=== PATIENT | male | born 1995 | race Caucasian/White ===

== ENCOUNTER 2016-12-02 02:17 | Emergency (ER) | payer BC ==
--- NOTE | 2016-12-02 02:31 | EDPHY ---
H & P HPI/ROS: HPI CHIEF COMPLAINT: Nausea, vomiting, diarrhea HISTORY OF PRESENT ILLNESS: Patient otherwise healthy 21-year-old male, no significant medical history presents emergency room nausea vomiting diarrhea. Nonbloody. Patient reports that he had PF change around 930 10:00 p.m. this evening. 30 minutes after eating this he developed nausea vomiting and diarrhea. Abdominal cramping rather diffuse. No fever. Vomited multiple times and has ongoing nausea. Decided come to the emergency room as he has ongoing vomiting. Denies fever. Denies chest pain or shortness of breath. Past Medical History: Denies significant medical history Past Surgical History: Denies significant surgical history Social History: Denies daily use drugs alcohol tobacco products. Family History: Noncontributory ROS REVIEW OF SYSTEMS: A comprehensive 10 point review of systems is otherwise negative aside from elements mentioned in the history of present illness. Exam Constitutional appears well nontoxic, triage nursing summary reviewed, vital signs reviewed, awake/alert. Eyes normal conjunctivae and sclera, EOMI, PERRLA. HENT normal inspection, atraumatic, moist mucus membranes, no epistaxis, neck supple/ no meningismus, no raccoon eyes. Respiratory clear to auscultation bilaterally, normal breath sounds, no respiratory distress, no wheezing. Cardiovascular rate normal, regular rhythm, no murmur, no edema, distal pulses normal. Gastrointestinal soft, non-tender, no rebound, no guarding, normal bowel sounds, no distension, no pulsatile mass. Genitourinary no CVA tenderness. Musculoskeletal no midline vertebral tenderness, full range of motion, no calf swelling, no tenderness of extremities, no meningismus, good pulses, neurovascularly intact. Skin pink, warm, & dry, no rash, skin atraumatic. Neurologic awake, alert and oriented x 3, AAOx3, moves all 4 extremities equally, motor intact, sensory intact, CN II-XII intact, normal cerebellar, normal vision, normal speech. Psychiatric normal mood/affect. Heme/Lymph/Immune no lymphadenopathy. Differential diagnosis includes but is not limited to and in no particular order : Food-borne illness, Bowel obstruction, appendicitis, gallbladder disease, diverticulitis, colitis, enteritis, perforated viscus, gastritis, GERD, esophagitis, urinary tract infection, pyelonephritis, kidney stones Medical Decision Making: Plan for this patient IV established with IV fluid bolus, 2 L normal saline, IV Zofran 4 mg for nausea, check abdominal blood work and re-evaluate. I do not feel that he needs any imaging at this time. Re-evaluation: 0243: Additionally this patient is having an anxiety attack. IV Ativan 1 mg has been ordered [place] [id number]. In the setting of nausea vomiting abdominal pain will proceed with CT scan abdomen pelvis with IV contrast rule out acute appendicitis. Most likely acute GI illness. CT scan abdomen pelvis with IV contrast shows enteritis. No evidence of free air free fluid or acute appendicitis. There are multiple loops of small bowel that are fluid filled consistent with enteritis. Clinically this picture make sense. He has elevated white count with nausea vomiting and diarrhea. CT scan that shows no evidence of appendicitis most likely enteritis. This is a reasonable diagnosis given his history and physical exam. 0430AM: Patient feeling better after IV fluid bolus, IV Ativan 1 mg and Phenergan and Zofran. No active vomiting resting comfortably. I did reexamine his abdomen is soft nontender no guarding or peritoneal signs at this time. Resting. Patient understands return emergency room if develops worsening abdominal pain fever vomiting. 0511AM: Patient p.o. challenge well. Not vomiting. Abdomen reexamine is soft. He would Like to go home. He understands return precautions return emergency room for worsening abdominal pain fever vomiting. Noted to have a leukocytosis. Leukocytosis most likely from acute nausea vomiting. Source: Patient - Medical/Surgical History Hx Asthma: No Hx Chronic Respiratory Disease: No Hx Diabetes: No Hx Cardiac Disease: No Hx Renal Disease: No Hx Cirrhosis: No Hx Alcoholism: No Hx HIV/AIDS: No Hx Splenectomy or Spleen Trauma: No Other PMH: Denies - Social History Smoking Status: Current some day smoker Constitutional: Initial Vital Signs Temperature (C) 36.2 C 12/02/16 02:34 Heart Rate 106 H 12/02/16 02:34 Respiratory Rate 16 12/02/16 02:34 Blood Pressure 104/70 12/02/16 02:34 O2 Sat (%) 96 12/02/16 02:34 O2 Delivery Mode Room Air Allergies/Adverse Reactions: No Known Allergies Allergy (Unverified 12/02/16 02:36) Home Medications: Medication Instructions Recorded Ondansetron HCl [Zofran] 4 mg PO Q4-6PRN PRN #10 tablet 12/02/16 Medical Decision Making - Data Points Laboratory Results: Laboratory Results 12/02/16 02:50 12/02/16 02:50 12/02/16 12/02/16 12/02/16 03:28 02:50 02:50 WBC 26.12 10^3/uL H 10^3/uL (3.80-9.50) RBC 6.24 10^6/uL 10^6/uL (4.40-6.38) Hgb 18.6 g/dL H g/dL (13.7-17.5) Hct 52.0 % H % (40.0-51.0) MCV 83.3 fL fL (81.5-99.8) MCH 29.8 pg pg (27.9-34.1) MCHC 35.8 g/dL g/dL (32.4-36.7) RDW 13.2 % % (11.5-15.2) Plt Count 378 10^3/uL 10^3/uL (150-400) MPV 9.7 fL fL (8.7-11.7) Neut % (Auto) 84.9 % H % (39.3-74.2) Lymph % (Auto) 4.9 % L % (15.0-45.0) [place] % (Auto) 8.2 % % (4.5-13.0) Eos % (Auto) 1.0 % % (0.6-7.6) Baso % (Auto) 0.4 % % (0.3-1.7) Nucleat RBC Rel Count 0.0 % % (0.0-0.2) Absolute Neuts (auto) 22.17 10^3/uL H 10^3/uL (1.70-6.50) Absolute Lymphs (auto) 1.28 10^3/uL 10^3/uL (1.00-3.00) Absolute Monos (auto) 2.15 10^3/uL H 10^3/uL (0.30-0.80) Absolute Eos (auto) 0.25 10^3/uL 10^3/uL (0.03-0.40) Absolute Basos (auto) 0.11 10^3/uL H 10^3/uL (0.02-0.10) Absolute Nucleated RBC 0.00 10^3/uL 10^3/uL (0-0.01) Immature Gran % 0.6 % % (0.0-1.1) Immature Gran # 0.16 10^3/uL H 10^3/uL (0.00-0.10) Sodium 143 mEq/L mEq/L (134-144) Potassium 4.6 mEq/L mEq/L (3.5-5.2) Chloride 106 mEq/L mEq/L (97-110) Carbon Dioxide 18 mEq/l L mEq/l (22-31) Anion Gap 19 mEq/L H mEq/L (8-16) BUN 19 mg/dL mg/dL (7-23) Creatinine 1.0 mg/dL mg/dL (0.7-1.3) Estimated GFR > 60 Glucose 121 mg/dL H mg/dL (70-100) Calcium 9.9 mg/dL mg/dL (8.5-10.4) Total Bilirubin 0.7 mg/dL mg/dL (0.1-1.4) Conjugated Bilirubin 0.4 mg/dL mg/dL (0.0-0.5) Unconjugated Bilirubin 0.3 mg/dL mg/dL (0.0-1.1) AST 36 IU/L IU/L (17-59) ALT 64 IU/L IU/L (21-72) Alkaline Phosphatase 83 IU/L IU/L (38-126) Total Protein 7.5 g/dL g/dL (6.3-8.2) Albumin 5.0 g/dL g/dL (3.5-5.0) Lipase 96 IU/L IU/L (23-300) Urine Color YELLOW Urine Appearance CLEAR Urine pH 8.0 H (5.0-7.5) Ur Specific [place] 1.030 (1.002-1.030) Urine Protein 1+ H (NEGATIVE) Urine Ketones 2+ H (NEGATIVE) Urine Blood NEGATIVE (NEGATIVE) Urine Nitrate NEGATIVE (NEGATIVE) Urine Bilirubin NEGATIVE (NEGATIVE) Urine Urobilinogen NEGATIVE EU EU (0.2-1.0) Ur Leukocyte Esterase NEGATIVE (NEGATIVE) Urine RBC 15-25 /hpf H /hpf (0-3) Urine WBC 1-3 /hpf /hpf (0-3) Ur Epithelial Cells NONE SEEN /lpf /lpf (NONE-1+) Urine Mucus 1+ /lpf /lpf (NONE-1+) Urine Glucose NEGATIVE (NEGATIVE) Medications Given: Discontinued Medications Sodium Chloride (Ns) 1,000 mls @ 0 mls/hr IV EDNOW ONE; Wide Open PRN Reason: Protocol Stop: 12/02/16 02:34 Last Admin: 12/02/16 02:44 Dose: 1,000 mls Sodium Chloride (Ns) 1,000 mls @ 0 mls/hr IV EDNOW ONE; Wide Open PRN Reason: Protocol Stop: 12/02/16 02:34 Last Admin: 12/02/16 02:45 Dose: 1,000 mls Lorazepam (Ativan Injection) 1 mg IVP EDNOW ONE Stop: 12/02/16 02:44 Last Admin: 12/02/16 02:44 Dose: 1 mg Ondansetron HCl (Zofran) 4 mg IVP EDNOW ONE Stop: 12/02/16 02:34 Last Admin: 12/02/16 02:44 Dose: 4 mg Promethazine HCl (Phenergan) 12.5 mg IVP ONCE ONE Stop: 12/02/16 03:36 Last Admin: 12/02/16 03:37 Dose: 12.5 mg Departure - Departure Disposition: Home, Routine, Self-Care Clinical Impression: Enteritis Abdominal pain Qualifiers: Abdominal location: generalized Qualified Code(s): R10.84 - Generalized abdominal pain Condition: Good Instructions: Enteritis (ED) Additional Instructions: 1. [place] diet next 24-48 hours. 2. No spicy fatty greasy foods. 3. Return emergency room if he develops worsening abdominal pain fever vomiting Referrals: NONE *PRIMARY CARE P,. [Primary Care Provider] - As per Instructions Prescriptions: Ondansetron HCl [Zofran] 4 mg PO Q4-6PRN PRN #10 tablet PRN Reason: Nausea/Vomiting, Use 1st
[2016-12-02] MEDS ORDERED: NS 1,000 ML IV ONE ×2 (02:33)
[2016-12-02] MEDS ORDERED: ONDANSETRON 4 MG/2 ML VIAL IVP ONE (02:33)
[2016-12-02 02:35] VITALS: RESP 16
[2016-12-02] MEDS ORDERED: LORazepam 2 MG/ML INJ ONE (02:41)
[2016-12-02] MEDS ORDERED: LORazepam 2 MG/ML INJ IVP ONE (02:43)
[2016-12-02 02:57] LABS: % IMMATURE GRANULYOCYTES 0.6 % (0.0-1.1); ABSOLUTE IMMATURE GRANULOCYTES 0.16 10^3/uL (0.00-0.10); ADD DIFF? NO; ADD MORPH? NO; ADD SCAN? NO; ATYPICAL LYMPHOCYTE FLAG 0 (0-99); FRAGMENT RBC FLAG 0 (0-99); HEMOGLOBIN 18.6 g/dL (13.7-17.5); LEFT SHIFT FLG 10 (0-99); LIPEMIA HEMOLYSIS FLAG 90 (0-99); MEAN CELL HEMOGLOBIN 29.8 pg (27.9-34.1); MEAN CELL HEMOGLOBIN CONCENTR. 35.8 g/dL (32.4-36.7); MEAN CELL VOLUME 83.3 fL (81.5-99.8); MEAN PLATELET VOLUME 9.7 fL (8.7-11.7); PLATELET CLUMPS FLAG 0 (0-99); PLATELET COUNT 378 10^3/uL (150-400); RED BLOOD CELL COUNT 6.24 10^6/uL (4.40-6.38); RED CELL DISTRIBUTION WIDTH 13.2 % (11.5-15.2)
[2016-12-02 03:08] LABS: ALANINE AMINOTRANSFERASE 64 IU/L (21-72); ALKALINE PHOSPHATASE 83 IU/L (38-126); ANION GAP 19 mEq/L (8-16); ASPARTATE AMINOTRANSFERASE 36 IU/L (17-59); BILIRUBIN,TOTAL 0.7 mg/dL (0.1-1.4); BILIRUBIN-CONJUGATED 0.4 mg/dL (0.0-0.5); BILIRUBIN-UNCONJUGATED 0.3 mg/dL (0.0-1.1); CALCIUM 9.9 mg/dL (8.5-10.4); CARBON DIOXIDE 18 mEq/l (22-31); CHLORIDE 106 mEq/L (97-110); GLOMERULAR FILTRATION RATE > 60; GLUCOSE 121 mg/dL (70-100); POTASSIUM 4.6 mEq/L (3.5-5.2); SODIUM 143 mEq/L (134-144); TOTAL PROTEIN 7.5 g/dL (6.3-8.2)
[2016-12-02 03:33] LABS: COLOR YELLOW; LEUKOCYTE ESTERASE,URINE NEGATIVE (NEGATIVE); NITRITE,URINE NEGATIVE (NEGATIVE)
[2016-12-02] MEDS ORDERED: PROMETHAZINE HCL 25 MG/ML INJ IVP ONE (03:35)
[2016-12-02] MEDS ORDERED: PROMETHAZINE HCL 25 MG/ML INJ ONE (03:35)
[2016-12-02 03:42] LABS: MUCUS 1+ /lpf (NONE-1+); RBC,URINE 15-25 /hpf (0-3)
[2016-12-02] MEDS ORDERED: IOPAMIDOL (ISOVUE-300) 100 ML BTL ONE (03:47)
[2016-12-02 04:16] VITALS: PULSE 70; O2SAT 97
[2016-12-02] MEDS ORDERED: ONDANSETRON 4MG PREPACK#2 BTL TAKEHOME ONE ×2 (05:11→05:12)
[2016-12-02 05:16] VITALS: BP 126/84; TEMP 98.1
== END 2016-12-02 05:16 | disposition home or self-care (01) ==
DX: K52.9 Noninfective gastroenteritis and colitis, unspecified (principal); F17.200 Nicotine dependence, unspecified, uncomplicated; E86.9 Volume depletion, unspecified
CPT/HCPCS: 96374; J2060; J2405; J2550; Q9967